=== PATIENT | female | born 2000 | race Two or more races ===

== ENCOUNTER 2023-10-15 11:11 | Inpatient (IN) | payer OTHER ==
[~2023-10-15] VITALS: Ht 165.1 cm; Wt 86.4 kg
[2023-10-15 12:15] LABS: Alanine Aminotransferase 18 U/L (7-40); Albumin 4.4 g/dL (3.2-4.8); Alkaline Phosphatase 54 U/L (46-116); Anion Gap 10 (5-15); Aspartate Aminotransferase 16 U/L (13-40); BUN/Creatinine Ratio 9.2 (10.0-20.0); Basophils # (auto) 0 10 ^3/uL (0-0.2); Basophils % (auto) 0.3 % (0.0-2.0); Blood Urea Nitrogen 7 mg/dL (9-23); Calcium 8.7 mg/dL (8.7-10.4); Carbon Dioxide 20 mmol/L (20-30); Chloride 108 mmol/L (98-107); Eosinophils # (auto) 0 10 ^3/uL (0-0.8); Glucose 123 mg/dL (74-106); Hematocrit 40.3 % (36.0-46.0); Hemoglobin 13.4 g/dL (12.2-16.2); Lymphocytes # (auto) 2.5 10 ^3/uL (0.4-5.4); Lymphocytes % (auto) 36.8 % (10.0-50.0); Mean Corpuscular Hemoglobin 29.4 pg (28.0-32.0); Mean Corpuscular Hgb Conc. 33.2 g/dL (32.0-36.0); Mean Corpuscular Volume 88.4 fL (80.0-100.0); Monocytes # (auto) 0.3 10 ^3/uL (0-1.3); Monocytes % (auto) 3.9 % (0.0-12.0); Neutrophils # (auto) 4.1 10 ^3/uL (1.6-8.6); Nucleated Red Blood Cells % 0.1 %; Potassium 3.7 mmol/L (3.5-5.1); Red Blood Cells 4.56 10^6/uL (4.0-5.20); Red Cell Distribution Width 13.2 % (11.8-14.3); Sodium 138 mmol/L (136-145); White Blood Cell 6.9 10^3/uL (4.4-10.8)
[2023-10-15 12:16] LABS: Bilirubin, Total 0.4 mg/dL (0.2-1.0); Total Protein 6.9 g/dL (5.7-8.2)
[2023-10-15 13:15] LABS: Urine Bacteria FEW /hpf (None Seen); Urine Blood TRACE /uL (Negative); Urine Clarity HAZY (Clear); Urine Color Yellow (Yellow); Urine Mucus FEW (None Seen); Urine Protein, UAD TRACE (Negative); Urine Specific Gravity 1.022 (1.001-1.035); Urine Urobilinogen Normal (Negative); Urine WBC 13 /hpf (0 - 5); Urine pH 5.5 (5.0-8.0)
[2023-10-15] MEDS ORDERED: MORPHINE SULFATE 4 MG/ML SYR/VIAL IM ONE (13:45)
[2023-10-15] MEDS ORDERED: ONDANSETRON HCL 4 MG/2 ML VIAL IV ONE (15:00)
[2023-10-15] MEDS ORDERED: SODIUM CHLORIDE 0.9% 1,000 ML IV ONE (15:00)
[2023-10-15 15:11] VITALS: PULSE 80; RESP 18; O2SAT 97
[2023-10-15] MEDS ORDERED: ceFAZolin 2 GM/D5W100ml 100 ML IV ONE (15:45)
[2023-10-15] MEDS ORDERED: LACTATED RINGER'S 1,000 ML IV SCH (15:45)
[2023-10-15] MEDS ORDERED: HYDROmorphone HCL 2 MG/ML VL/or syr ONE (18:08)
[2023-10-15] MEDS ORDERED: fentaNYL CITRATE 100 MCG/2 ML VL ONE ×2 (18:08→18:54)
[2023-10-15] MEDS ORDERED: MIDAZOLAM HCL 2MG/2ML 2ml VIAL (1mg/ml) ONE (18:08)
[2023-10-15] MEDS ORDERED: KETOROLAC TROMETH 30 MG/ML 1ML VIAL ONE (18:09)
[2023-10-15] MEDS ORDERED: DexAMETHasone SOD PHOS 10MG/1ML VIAL INJ ONE (18:09)
[2023-10-15] MEDS ORDERED: ONDANSETRON HCL 4 MG/2 ML VIAL ONE (18:09)
[2023-10-15] MEDS ORDERED: LIDOCAINE HCL 100 MG/5ML (2%) SYRG INJ IV ONE (18:09)
[2023-10-15] MEDS ORDERED: GLYCOPYRROLATE 0.2 MG/ML 1ML VIAL ONE (18:09)
[2023-10-15] MEDS ORDERED: SUGAMMADEX 200mg/2ml Vial (100MG/ML) IV ONE ×2 (18:54→21:29)
[2023-10-15] MEDS ORDERED: HYDROmorphone HCL 2 MG/ML VL/or syr IV PRN ×2 (19:45→20:15)
[2023-10-15] MEDS ORDERED: ONDANSETRON HCL 4 MG/2 ML VIAL IV PRN ×2 (19:45→20:15)
[2023-10-15] MEDS ORDERED: HYDR-4902 PO (19:46)
[2023-10-15] MEDS ORDERED: IBUP-1455 PO (19:46)
[2023-10-15] MEDS ORDERED: MEPERIDINE HCL (25 MG/ML) 1ML VIAL ONE (19:46)
[2023-10-15 19:47] VITALS: PULSE 144; RESP 11; O2SAT 100
[2023-10-15 20:05] VITALS: PULSE 123; RESP 12; O2SAT 98
[2023-10-15 20:56] VITALS: RESP 18; O2SAT 95
[2023-10-15 23:49] LABS: Basophils # (auto) 0 10 ^3/uL (0-0.2); Basophils % (auto) 0.1 % (0.0-2.0); Eosinophils # (auto) 0 10 ^3/uL (0-0.8); Hematocrit 31.7 % (36.0-46.0); Hemoglobin 10.4 g/dL (12.2-16.2); Lymphocytes # (auto) 0.8 10 ^3/uL (0.4-5.4); Mean Corpuscular Hemoglobin 29.4 pg (28.0-32.0); Mean Corpuscular Hgb Conc. 32.9 g/dL (32.0-36.0); Mean Corpuscular Volume 89.3 fL (80.0-100.0); Monocytes # (auto) 0.1 10 ^3/uL (0-1.3); Monocytes % (auto) 0.5 % (0.0-12.0); Neutrophils # (auto) 10.1 10 ^3/uL (1.6-8.6); Neutrophils % (auto) 92.4 % (37.0-80.0); Red Blood Cells 3.54 10^6/uL (4.0-5.20); Red Cell Distribution Width 13.4 % (11.8-14.3)
[2023-10-16] VITALS (7 sets, daily range): BP systolic 102–115; BP diastolic 43–61; PULSE 85–97; RESP 16–21; TEMP 97.6–98.2; O2SAT 97–99
[2023-10-16] MEDS ORDERED: ALBUTEROL SULF 2.5 MG/0.5ML(0.5%) NEB SOLN ONE (01:17)
[2023-10-16] MEDS: HYDROcodone-ACET 10/325MG TAB PO PRN ×2 (06:29→13:21)
[2023-10-16 07:26] LABS: Basophils # (auto) 0 10 ^3/uL (0-0.2); Basophils % (auto) 0.1 % (0.0-2.0); Eosinophils # (auto) 0 10 ^3/uL (0-0.8); Eosinophils % (auto) 0.1 % (0.0-7.0); Hemoglobin 9.3 g/dL (12.2-16.2); Lymphocytes # (auto) 1.1 10 ^3/uL (0.4-5.4); Lymphocytes % (auto) 11.6 % (10.0-50.0); Mean Corpuscular Hemoglobin 29.7 pg (28.0-32.0); Mean Corpuscular Hgb Conc. 33.3 g/dL (32.0-36.0); Mean Corpuscular Volume 89.1 fL (80.0-100.0); Monocytes # (auto) 0.3 10 ^3/uL (0-1.3); Monocytes % (auto) 3.4 % (0.0-12.0); Neutrophils % (auto) 84.8 % (37.0-80.0); Red Blood Cells 3.15 10^6/uL (4.0-5.20); Red Cell Distribution Width 13.3 % (11.8-14.3); White Blood Cell 9.5 10^3/uL (4.4-10.8)
[2023-10-16] MEDS: IBUPROFEN 800 MG TAB PO PRN (20:48)
[2023-10-17 05:30] VITALS: BP 92/47; PULSE 74; RESP 16; TEMP 97.9; O2SAT 97
[2023-10-17 07:30] VITALS: PULSE 74; RESP 16; O2SAT 97
[2023-10-17] MEDS ORDERED: FERR30CA PO (08:22)
[2023-10-17 08:33] LABS: Hematocrit 26.8 % (36.0-46.0); Hemoglobin 8.9 g/dL (12.2-16.2)
[2023-10-17 09:04] VITALS: BP 96/51; PULSE 76; RESP 18; TEMP 98.1; O2SAT 97
[2023-10-17 11:13] VITALS: TEMP 97.9
[2023-10-17] MEDS: IBUPROFEN 800 MG TAB PO PRN (11:13)
[2023-10-18 10:06] LABS: Chlamydia Trachomatis, NAA Negative (Negative); Neisseria gonorrhoeae, NAA Negative (Negative)
== END 2023-10-17 12:00 | disposition home or self-care (01) | DRG 547 ==
LOC: ER 11:11 → OVERFLOW 15:46 → CENTRAL 15:46
PROVIDERS: ADMIT Obstetrics & Gynecology; ATTEND Obstetrics & Gynecology
PROC: 0UC Female Reproductive System, Extirpation (ICD-10-PCS; 2023-10-15)
PROC: 0UT54ZZ Resection of Right Fallopian Tube, Percutaneous Endoscopic Approach (ICD-10-PCS; principal; 2023-10-15 18:20)
DX: O00.101 Right tubal pregnancy without intrauterine pregnancy (principal); K66.1 Hemoperitoneum; R71.0 Precipitous drop in hematocrit; Z87.59 Personal history of other complications of pregnancy, childbirth and the puerperium
CPT/HCPCS: 36415; 76801; 80053; 81001; 84702; 85014; 85018; 85025; 86850; 86900; 86901; G0378; J1100; J1885; J2250; J2405